=== PATIENT | female | born 1940 | race Caucasian/White ===

== ENCOUNTER 2016-09-07 11:11 | Inpatient (IN) | payer MEDICARE ==
[~2016-09-07] VITALS: Ht 152.4 cm; Wt 76.4 kg
[~2016-09-07 11:11] MED LIST: LIDOCAINE 2% SYR 5 ML IV ONE; PROPOFOL 50ML PER ML IV ONE
[2016-09-07] MEDS ORDERED: OPTIRAY 350 100 ML VIAL HMH IV ONE (11:12)
[2016-09-07] MEDS ORDERED: DILAUDID 1 MG/ML AMP ONE (14:06)
[2016-09-07] MEDS ORDERED: SODIUM CHLORIDE 0.9% 500 ML IV ONE (15:57)
[2016-09-07] MEDS ORDERED: CEFTRIAXONE 1 GM VIAL ONE (19:03)
[2016-09-07] MEDS ORDERED: SODIUM CHLORIDE 0.9% 100 ML IV ONE (19:03)
[2016-09-07] MEDS ORDERED: SALINE FLUSH 10 ML FLUSH PRN (20:15)
[2016-09-07 23:20] VITALS: RESP 18
[2016-09-08] VITALS (8 sets, daily range): BP systolic 124–142; RESP 16–22; TEMP 96.8–100.5; Ht 152.4 cm; Wt 76.4 kg
[2016-09-08] MEDS: SODIUM CHLORIDE 0.9% FLUSH BAG 500 ML IV SCH (05:29)
[2016-09-08] MEDS ORDERED: AZITHROMYCIN 500 MG in SODIUM CHLORIDE 0.9% 250 ML IV ONE (07:50)
[2016-09-08] MEDS ORDERED: GLUCAGON 1 MG VIAL IM PRN (07:55)
[2016-09-08] MEDS ORDERED: DEXTROSE 50% SYRINGE 50 ML IV PRN (07:55)
[2016-09-08] MEDS: ASPIRIN 81 MG CHEW TAB PO SCH (10:57)
[2016-09-08] MEDS: ACETAMINOPHEN 325 MG TAB PO PRN (10:58)
[2016-09-08] MEDS: PANTOPRAZOLE 40 MG TAB PO SCH (10:59)
[2016-09-08] MEDS: PREDNISONE 20 MG TAB PO SCH ×2 (10:59→11:39)
[2016-09-08] MEDS: CEFTRIAXONE 1 GM in SODIUM CHLORIDE 0.9% 50 ML IV SCH (11:00)
[2016-09-08] MEDS: SUCRALFATE 1 GM TAB PO SCH ×3 (11:00→20:28)
[2016-09-08] MEDS: SALINE FLUSH 10 ML FLUSH SCH ×2 (11:04→20:28)
[2016-09-08] MEDS ORDERED: ONDANSETRON 4 MG VIAL IV PUSH PRN (11:45)
[2016-09-08] MEDS: DUONEB INH SCH ×2 (15:31→19:46)
[2016-09-08] MEDS: Furosemide 40 MG/4 ML VIAL IV SCH (18:47)
[2016-09-08] MEDS: ENOXAPARIN 40 MG/0.4 ML SYR SUBQ SCH (18:47)
[2016-09-08] MEDS: Atorvastatin 40 MG TAB PO SCH (20:28)
[2016-09-09] MEDS: DUONEB INH SCH ×4 (00:09→19:50)
[2016-09-09 02:33] VITALS: BP_SYST 142; RESP 20; TEMP 97.9
[2016-09-09] MEDS: SODIUM CHLORIDE 0.9% FLUSH BAG 500 ML IV SCH (06:55)
[2016-09-09] MEDS: PANTOPRAZOLE 40 MG TAB PO SCH (06:56)
[2016-09-09] MEDS: LEVOTHYROXINE 0.025 MG TAB PO SCH (06:56)
[2016-09-09] MEDS: SUCRALFATE 1 GM TAB PO SCH ×4 (06:56→20:42)
[2016-09-09 08:01] VITALS: BP_SYST 144; RESP 18; TEMP 98.3
[2016-09-09] MEDS: CEFTRIAXONE 1 GM in SODIUM CHLORIDE 0.9% 50 ML IV SCH (09:34)
[2016-09-09] MEDS: SALINE FLUSH 10 ML FLUSH SCH ×2 (09:34→20:43)
[2016-09-09] MEDS: Furosemide 40 MG/4 ML VIAL IV SCH (09:35)
[2016-09-09 11:50] VITALS: BP_SYST 142; RESP 20; TEMP 98.3
[2016-09-09] MEDS: ASPIRIN 81 MG CHEW TAB PO SCH (14:53)
[2016-09-09] MEDS: PREDNISONE 20 MG TAB PO SCH (14:53)
[2016-09-09] MEDS: AZITHROMYCIN 250 MG TAB PO SCH (14:53)
[2016-09-09 15:20] VITALS: BP_SYST 132; RESP 20; TEMP 96.8
[2016-09-09] MEDS: ENOXAPARIN 40 MG/0.4 ML SYR SUBQ SCH (17:37)
[2016-09-09 19:52] VITALS: BP_SYST 150; RESP 20; TEMP 97.2
[2016-09-09] MEDS: Atorvastatin 40 MG TAB PO SCH (20:42)
[2016-09-09] MEDS ORDERED: LEVEMIR INSULIN SUBQ SCH (21:00)
[2016-09-09 23:09] VITALS: BP_SYST 144; RESP 18; TEMP 98
[2016-09-10] VITALS (12 sets, daily range): BP systolic 115–164; RESP 12–29; TEMP 97.1–98.7
[2016-09-10] MEDS: SODIUM CHLORIDE 0.9% FLUSH BAG 500 ML IV SCH (06:02)
[2016-09-10] MEDS: SUCRALFATE 1 GM TAB PO SCH ×4 (06:03→21:19)
[2016-09-10] MEDS: LEVOTHYROXINE 0.025 MG TAB PO SCH (06:03)
[2016-09-10] MEDS: PANTOPRAZOLE 40 MG TAB PO SCH (06:03)
[2016-09-10] MEDS: DUONEB INH SCH ×3 (06:49→18:23)
[2016-09-10] MEDS ORDERED: LACT RINGERS 1,000 ML IV SCH (07:40)
[2016-09-10] MEDS ORDERED: LIDOCAINE 1% BUFFERED 1 ML SYR INTRADERM PRN (07:40)
[2016-09-10] MEDS: CEFTRIAXONE 1 GM in SODIUM CHLORIDE 0.9% 50 ML IV SCH (09:24)
[2016-09-10] MEDS: ASPIRIN 81 MG CHEW TAB PO SCH (09:25)
[2016-09-10] MEDS: Furosemide 40 MG/4 ML VIAL IV SCH (09:25)
[2016-09-10] MEDS: SALINE FLUSH 10 ML FLUSH SCH ×2 (09:25→21:19)
[2016-09-10] MEDS: AZITHROMYCIN 250 MG TAB PO SCH (09:25)
[2016-09-10] MEDS: PREDNISONE 20 MG TAB PO SCH (09:25)
[2016-09-10] MEDS: ENOXAPARIN 40 MG/0.4 ML SYR SUBQ SCH (17:06)
[2016-09-10] MEDS: Atorvastatin 40 MG TAB PO SCH (21:19)
[2016-09-10] MEDS: LEVEMIR INSULIN SUBQ SCH (21:21)
[2016-09-11 03:27] VITALS: BP_SYST 162; RESP 20; TEMP 97.9
[2016-09-11] MEDS: SUCRALFATE 1 GM TAB PO SCH ×4 (06:30→20:21)
[2016-09-11] MEDS: PANTOPRAZOLE 40 MG TAB PO SCH (06:30)
[2016-09-11] MEDS: SODIUM CHLORIDE 0.9% FLUSH BAG 500 ML IV SCH (06:30)
[2016-09-11] MEDS: LEVOTHYROXINE 0.025 MG TAB PO SCH (06:30)
[2016-09-11] MEDS: DUONEB INH SCH ×3 (07:34→20:35)
[2016-09-11 08:05] VITALS: BP_SYST 168; RESP 18; TEMP 97.7
[2016-09-11] MEDS ORDERED: amLODIPine 5 MG TAB PO SCH (09:00)
[2016-09-11] MEDS: SALINE FLUSH 10 ML FLUSH SCH ×2 (09:50→20:21)
[2016-09-11] MEDS: ASPIRIN 81 MG CHEW TAB PO SCH (09:52)
[2016-09-11] MEDS: CEFTRIAXONE 1 GM in SODIUM CHLORIDE 0.9% 50 ML IV SCH (09:52)
[2016-09-11] MEDS: PREDNISONE 20 MG TAB PO SCH (09:52)
[2016-09-11] MEDS: AZITHROMYCIN 250 MG TAB PO SCH (09:52)
[2016-09-11 11:47] VITALS: BP_SYST 172; RESP 18; TEMP 97.2
[2016-09-11 16:44] VITALS: BP_SYST 172; RESP 18; TEMP 97.9
[2016-09-11] MEDS: ENOXAPARIN 40 MG/0.4 ML SYR SUBQ SCH (17:25)
[2016-09-11] MEDS: LISINOPRIL 10 MG TAB PO SCH (17:41)
[2016-09-11 19:42] VITALS: BP_SYST 150; RESP 20; TEMP 97.5
[2016-09-11] MEDS: Atorvastatin 40 MG TAB PO SCH (20:21)
[2016-09-11] MEDS: LEVEMIR INSULIN SUBQ SCH (20:23)
[2016-09-11 23:37] VITALS: BP_SYST 148; RESP 20; TEMP 97.8
[2016-09-12 03:29] VITALS: BP_SYST 166; TEMP 97.6
[2016-09-12] MEDS: PANTOPRAZOLE 40 MG TAB PO SCH (05:48)
[2016-09-12] MEDS: SODIUM CHLORIDE 0.9% FLUSH BAG 500 ML IV SCH (05:48)
[2016-09-12] MEDS: SUCRALFATE 1 GM TAB PO SCH ×4 (05:48→21:16)
[2016-09-12] MEDS: LEVOTHYROXINE 0.025 MG TAB PO SCH (05:50)
[2016-09-12] MEDS: DUONEB INH SCH ×4 (07:26→19:56)
[2016-09-12 07:44] VITALS: BP_SYST 162; RESP 18; TEMP 97.4
[2016-09-12] MEDS: LISINOPRIL 10 MG TAB PO SCH (10:18)
[2016-09-12] MEDS: CEFTRIAXONE 1 GM in SODIUM CHLORIDE 0.9% 50 ML IV SCH (10:18)
[2016-09-12] MEDS: ASPIRIN 81 MG CHEW TAB PO SCH (10:18)
[2016-09-12] MEDS: LEVEMIR INSULIN SUBQ SCH ×2 (10:19→21:18)
[2016-09-12] MEDS: SALINE FLUSH 10 ML FLUSH SCH ×2 (10:19→21:17)
[2016-09-12] MEDS: AZITHROMYCIN 250 MG TAB PO SCH (10:19)
[2016-09-12] MEDS: amLODIPine 10 MG TAB PO SCH (10:19)
[2016-09-12 11:35] VITALS: BP_SYST 160; RESP 18; TEMP 97.1
[2016-09-12] MEDS: ACETAMINOPHEN 325 MG TAB PO PRN (16:09)
[2016-09-12 16:10] VITALS: BP_SYST 158; RESP 18; TEMP 97.5
[2016-09-12] MEDS: ENOXAPARIN 40 MG/0.4 ML SYR SUBQ SCH (18:02)
[2016-09-12] MEDS: Atorvastatin 40 MG TAB PO SCH (21:16)
[2016-09-12 21:26] VITALS: BP_SYST 152; RESP 20; TEMP 98.1
[2016-09-13 01:24] VITALS: BP_SYST 160; RESP 18; TEMP 97.5
[2016-09-13 03:18] VITALS: BP_SYST 130; RESP 16; TEMP 98.5
[2016-09-13] MEDS: PANTOPRAZOLE 40 MG TAB PO SCH (06:00)
[2016-09-13] MEDS: SUCRALFATE 1 GM TAB PO SCH ×4 (06:00→21:51)
[2016-09-13] MEDS: LEVOTHYROXINE 0.025 MG TAB PO SCH (06:00)
[2016-09-13] MEDS: SODIUM CHLORIDE 0.9% FLUSH BAG 500 ML IV SCH (06:00)
[2016-09-13 08:00] VITALS: BP_SYST 132; RESP 18; TEMP 97.6
[2016-09-13] MEDS: ASPIRIN 81 MG CHEW TAB PO SCH (08:42)
[2016-09-13] MEDS: CEFTRIAXONE 1 GM in SODIUM CHLORIDE 0.9% 50 ML IV SCH (08:42)
[2016-09-13] MEDS: LEVEMIR INSULIN SUBQ SCH ×2 (08:42→21:53)
[2016-09-13] MEDS: amLODIPine 10 MG TAB PO SCH (08:42)
[2016-09-13] MEDS: SALINE FLUSH 10 ML FLUSH SCH ×2 (08:43→21:52)
[2016-09-13] MEDS: DUONEB INH SCH ×3 (08:48→20:17)
[2016-09-13] MEDS ORDERED: MISSING DOSE XX ONE (09:15)
[2016-09-13] MEDS: LISINOPRIL 20 MG TAB PO SCH (10:01)
[2016-09-13 11:21] VITALS: BP_SYST 136; RESP 18; TEMP 97.5
[2016-09-13] MEDS ORDERED: PHARMACY TO DOSE CEFEPIME IV SCH (12:45)
[2016-09-13] MEDS ORDERED: Furosemide 40 MG/4 ML VIAL IV ONE (12:55)
[2016-09-13] MEDS: CEFEPIME 2000 MG/100 ML D5W 100 ML IV SCH ×2 (13:47→21:51)
[2016-09-13] MEDS: GUAIFENESIN ER 600 MG TABCR PO SCH ×2 (13:47→21:51)
[2016-09-13 16:03] VITALS: BP_SYST 110; RESP 20; TEMP 96.8
[2016-09-13] MEDS: ENOXAPARIN 40 MG/0.4 ML SYR SUBQ SCH (17:19)
[2016-09-13 19:35] VITALS: BP_SYST 140; RESP 20; TEMP 97.9
[2016-09-13] MEDS: Atorvastatin 40 MG TAB PO SCH (21:51)
[2016-09-13] MEDS: ACETAMINOPHEN 325 MG TAB PO PRN (22:05)
[2016-09-14 00:06] VITALS: BP_SYST 120; RESP 20; TEMP 97.4
[2016-09-14 03:10] VITALS: BP_SYST 134; RESP 18; TEMP 97.9
[2016-09-14] MEDS: DUONEB INH SCH ×3 (06:28→19:20)
[2016-09-14] MEDS: SODIUM CHLORIDE 0.9% FLUSH BAG 500 ML IV SCH (06:44)
[2016-09-14] MEDS: PANTOPRAZOLE 40 MG TAB PO SCH (06:44)
[2016-09-14] MEDS: SUCRALFATE 1 GM TAB PO SCH ×4 (06:44→21:04)
[2016-09-14] MEDS: LEVOTHYROXINE 0.025 MG TAB PO SCH (06:44)
[2016-09-14 07:56] VITALS: BP_SYST 136; RESP 18; TEMP 97.9
[2016-09-14] MEDS: SALINE FLUSH 10 ML FLUSH SCH ×2 (08:29→21:03)
[2016-09-14] MEDS: CEFEPIME 2000 MG/100 ML D5W 100 ML IV SCH ×2 (08:29→21:04)
[2016-09-14] MEDS: LEVEMIR INSULIN SUBQ SCH ×3 (08:30→21:05)
[2016-09-14] MEDS: Furosemide 20 MG TAB PO SCH (08:31)
[2016-09-14] MEDS: amLODIPine 10 MG TAB PO SCH (08:31)
[2016-09-14] MEDS: GUAIFENESIN ER 600 MG TABCR PO SCH ×2 (08:31→21:04)
[2016-09-14] MEDS: ASPIRIN 81 MG CHEW TAB PO SCH (08:31)
[2016-09-14] MEDS: LISINOPRIL 20 MG TAB PO SCH (08:31)
[2016-09-14 11:55] VITALS: BP_SYST 134; RESP 18; TEMP 97.4
[2016-09-14 15:58] VITALS: BP_SYST 136; RESP 18; TEMP 97.9
[2016-09-14] MEDS: ENOXAPARIN 40 MG/0.4 ML SYR SUBQ SCH (17:09)
[2016-09-14 20:38] VITALS: BP_SYST 130; RESP 16; TEMP 98.8
[2016-09-14] MEDS: Atorvastatin 40 MG TAB PO SCH (21:04)
[2016-09-15] MEDS: ACETAMINOPHEN 325 MG TAB PO PRN (00:46)
[2016-09-15 01:04] VITALS: BP_SYST 134; RESP 18; TEMP 97.6
[2016-09-15] MEDS: SUCRALFATE 1 GM TAB PO SCH ×4 (06:45→21:12)
[2016-09-15] MEDS: PANTOPRAZOLE 40 MG TAB PO SCH (06:45)
[2016-09-15] MEDS: LEVOTHYROXINE 0.025 MG TAB PO SCH (06:46)
[2016-09-15] MEDS: SODIUM CHLORIDE 0.9% FLUSH BAG 500 ML IV SCH (06:46)
[2016-09-15] MEDS: DUONEB INH SCH ×3 (07:10→18:30)
[2016-09-15] MEDS: CEFEPIME 2000 MG/100 ML D5W 100 ML IV SCH ×2 (08:14→21:13)
[2016-09-15] MEDS: LEVEMIR INSULIN SUBQ SCH ×2 (08:14→21:14)
[2016-09-15] MEDS: SALINE FLUSH 10 ML FLUSH SCH ×2 (08:14→21:14)
[2016-09-15 08:18] VITALS: BP_SYST 134; RESP 18; TEMP 97.6
[2016-09-15] MEDS: ASPIRIN 81 MG CHEW TAB PO SCH (09:01)
[2016-09-15] MEDS: LISINOPRIL 20 MG TAB PO SCH (09:01)
[2016-09-15] MEDS: Furosemide 20 MG TAB PO SCH (09:01)
[2016-09-15] MEDS: GUAIFENESIN ER 600 MG TABCR PO SCH ×2 (09:01→21:12)
[2016-09-15] MEDS: amLODIPine 10 MG TAB PO SCH (09:02)
[2016-09-15] MEDS ORDERED: MISSING DOSE XX ONE (11:10)
[2016-09-15 11:43] VITALS: BP_SYST 130; RESP 18; TEMP 98.1
[2016-09-15] MEDS ORDERED: Furosemide 40 MG/4 ML VIAL IV ONE (12:10)
[2016-09-15 14:53] VITALS: BP_SYST 140; RESP 18; TEMP 98.2
[2016-09-15] MEDS: ENOXAPARIN 40 MG/0.4 ML SYR SUBQ SCH (17:35)
[2016-09-15 19:26] VITALS: BP_SYST 120; RESP 18; TEMP 97.8
[2016-09-15] MEDS: Atorvastatin 40 MG TAB PO SCH (21:12)
[2016-09-15 23:20] VITALS: BP_SYST 130; RESP 20; TEMP 98.4
[2016-09-16 03:30] VITALS: BP_SYST 144; RESP 18; TEMP 97.7
[2016-09-16] MEDS: PANTOPRAZOLE 40 MG TAB PO SCH (06:54)
[2016-09-16] MEDS: LEVOTHYROXINE 0.025 MG TAB PO SCH (06:54)
[2016-09-16] MEDS: SODIUM CHLORIDE 0.9% FLUSH BAG 500 ML IV SCH (06:54)
[2016-09-16] MEDS: SUCRALFATE 1 GM TAB PO SCH ×4 (06:54→22:21)
[2016-09-16] MEDS: DUONEB INH SCH ×3 (07:09→19:24)
[2016-09-16] MEDS: CEFEPIME 2000 MG/100 ML D5W 100 ML IV SCH (07:42)
[2016-09-16] MEDS: SALINE FLUSH 10 ML FLUSH SCH ×2 (07:42→22:23)
[2016-09-16 08:13] VITALS: BP_SYST 118; RESP 18; TEMP 97.8
[2016-09-16] MEDS: ASPIRIN 81 MG CHEW TAB PO SCH (08:36)
[2016-09-16] MEDS: GUAIFENESIN ER 600 MG TABCR PO SCH ×2 (08:36→22:21)
[2016-09-16] MEDS: LISINOPRIL 20 MG TAB PO SCH (08:36)
[2016-09-16] MEDS: amLODIPine 10 MG TAB PO SCH (08:37)
[2016-09-16] MEDS: Furosemide 20 MG TAB PO SCH (08:37)
[2016-09-16] MEDS: LEVEMIR INSULIN SUBQ SCH ×2 (08:38→22:23)
[2016-09-16] MEDS ORDERED: GUAIFENESIN 10 ML UDC PO PRN (10:00)
[2016-09-16] MEDS ORDERED: MISSING DOSE XX ONE (11:05)
[2016-09-16 11:53] VITALS: BP_SYST 104; RESP 18; TEMP 98.3
[2016-09-16] MEDS ORDERED: PHARMACY TO DOSE ZOSYN IV SCH (12:15)
[2016-09-16] MEDS: PIPERACIL/TAZO 2.25GM/50ML 50 ML IV SCH ×2 (13:22→17:36)
[2016-09-16 17:10] VITALS: BP_SYST 122; RESP 18; TEMP 97.6
[2016-09-16] MEDS: ENOXAPARIN 40 MG/0.4 ML SYR SUBQ SCH (19:07)
[2016-09-16 19:40] VITALS: BP_SYST 130; RESP 20; TEMP 98.2
[2016-09-16] MEDS: Atorvastatin 40 MG TAB PO SCH (22:21)
[2016-09-16 23:31] VITALS: BP_SYST 120; RESP 18; TEMP 97.7
[2016-09-17] MEDS: PIPERACIL/TAZO 2.25GM/50ML 50 ML IV SCH ×4 (00:34→18:37)
[2016-09-17 05:10] VITALS: BP_SYST 142; RESP 22; TEMP 98
[2016-09-17] MEDS: SODIUM CHLORIDE 0.9% FLUSH BAG 500 ML IV SCH (05:57)
[2016-09-17] MEDS: LEVOTHYROXINE 0.025 MG TAB PO SCH (05:59)
[2016-09-17] MEDS: SUCRALFATE 1 GM TAB PO SCH ×4 (05:59→21:04)
[2016-09-17] MEDS ORDERED: MISSING DOSE XX ONE (06:35)
[2016-09-17] MEDS ORDERED: LANSOPRAZOLE 30 MG/10 ML PO SCH (07:00)
[2016-09-17] MEDS: DUONEB INH SCH ×3 (07:09→19:55)
[2016-09-17 08:20] VITALS: BP_SYST 112; RESP 18; TEMP 98.1
[2016-09-17] MEDS: amLODIPine 10 MG TAB PO SCH (08:52)
[2016-09-17] MEDS: ASPIRIN 81 MG CHEW TAB PO SCH (08:52)
[2016-09-17] MEDS: GUAIFENESIN ER 600 MG TABCR PO SCH ×3 (08:52→21:04)
[2016-09-17] MEDS: Furosemide 20 MG TAB PO SCH (08:52)
[2016-09-17] MEDS: LISINOPRIL 20 MG TAB PO SCH (08:52)
[2016-09-17] MEDS: LEVEMIR INSULIN SUBQ SCH ×2 (08:53→21:04)
[2016-09-17] MEDS: SALINE FLUSH 10 ML FLUSH SCH ×2 (08:54→21:03)
[2016-09-17 11:10] VITALS: BP_SYST 108; RESP 18; TEMP 98.4
[2016-09-17 17:07] VITALS: BP_SYST 122; RESP 18; TEMP 97.8
[2016-09-17] MEDS: ENOXAPARIN 40 MG/0.4 ML SYR SUBQ SCH (18:38)
[2016-09-17 19:45] VITALS: BP_SYST 100; RESP 18; TEMP 98.2
[2016-09-17] MEDS: Atorvastatin 40 MG TAB PO SCH (21:04)
[2016-09-17 23:36] VITALS: BP_SYST 96; RESP 20; TEMP 98.3
[2016-09-18] MEDS: PIPERACIL/TAZO 2.25GM/50ML 50 ML IV SCH ×2 (00:15→06:07)
[2016-09-18 03:53] VITALS: BP_SYST 102; RESP 20; TEMP 98
[2016-09-18] MEDS: SODIUM CHLORIDE 0.9% FLUSH BAG 500 ML IV SCH (06:07)
[2016-09-18] MEDS: LEVOTHYROXINE 0.025 MG TAB PO SCH (06:53)
[2016-09-18] MEDS: SUCRALFATE 1 GM TAB PO SCH ×4 (06:53→21:42)
[2016-09-18] MEDS: DUONEB INH SCH ×3 (07:52→18:56)
[2016-09-18 08:13] VITALS: BP_SYST 122; RESP 20; TEMP 97.8
[2016-09-18] MEDS: Furosemide 20 MG TAB PO SCH (08:49)
[2016-09-18] MEDS: amLODIPine 10 MG TAB PO SCH (08:49)
[2016-09-18] MEDS: GUAIFENESIN ER 600 MG TABCR PO SCH ×2 (08:49→21:42)
[2016-09-18] MEDS: ASPIRIN 81 MG CHEW TAB PO SCH (08:49)
[2016-09-18] MEDS: LEVEMIR INSULIN SUBQ SCH ×2 (08:49→21:59)
[2016-09-18] MEDS: LISINOPRIL 20 MG TAB PO SCH (08:49)
[2016-09-18] MEDS: SALINE FLUSH 10 ML FLUSH SCH ×2 (08:50→21:42)
[2016-09-18] MEDS ORDERED: MISSING DOSE XX ONE (08:50)
[2016-09-18] MEDS: LANSOPRAZOLE 30 MG SOLUTAB PO SCH (10:20)
[2016-09-18 11:00] VITALS: BP_SYST 130; RESP 20; TEMP 98
[2016-09-18] MEDS: PIPERACIL/TAZO 3.375GM/50ML 50 ML IV SCH ×3 (13:54→23:18)
[2016-09-18 15:40] VITALS: BP_SYST 136; RESP 20; TEMP 97.8
[2016-09-18] MEDS: ENOXAPARIN 40 MG/0.4 ML SYR SUBQ SCH (17:29)
[2016-09-18 20:13] VITALS: BP_SYST 100; RESP 18; TEMP 97.8
[2016-09-18] MEDS: Atorvastatin 40 MG TAB PO SCH (21:42)
[2016-09-18] MEDS: BENZONATATE 100 MG CAP PO PRN (21:42)
[2016-09-18 23:25] VITALS: BP_SYST 100; RESP 20; TEMP 97.4
[2016-09-19 03:14] VITALS: BP_SYST 104; RESP 16; TEMP 97.8
[2016-09-19] MEDS: PIPERACIL/TAZO 3.375GM/50ML 50 ML IV SCH ×3 (05:59→17:07)
[2016-09-19] MEDS: SUCRALFATE 1 GM TAB PO SCH ×4 (06:00→22:17)
[2016-09-19] MEDS: LANSOPRAZOLE 30 MG SOLUTAB PO SCH (06:00)
[2016-09-19] MEDS: LEVOTHYROXINE 0.025 MG TAB PO SCH (06:00)
[2016-09-19] MEDS: SODIUM CHLORIDE 0.9% FLUSH BAG 500 ML IV SCH (06:02)
[2016-09-19] MEDS: DUONEB INH SCH ×3 (07:08→19:24)
[2016-09-19 08:20] VITALS: BP_SYST 118; RESP 20; TEMP 97.7
[2016-09-19] MEDS: GUAIFENESIN ER 600 MG TABCR PO SCH ×2 (09:17→22:17)
[2016-09-19] MEDS: Furosemide 20 MG TAB PO SCH (09:18)
[2016-09-19] MEDS: LISINOPRIL 20 MG TAB PO SCH (09:18)
[2016-09-19] MEDS: amLODIPine 10 MG TAB PO SCH (09:18)
[2016-09-19] MEDS: ASPIRIN 81 MG CHEW TAB PO SCH (09:18)
[2016-09-19] MEDS: LEVEMIR INSULIN SUBQ SCH ×2 (09:19→22:18)
[2016-09-19] MEDS: BENZONATATE 100 MG CAP PO PRN (09:20)
[2016-09-19] MEDS: SALINE FLUSH 10 ML FLUSH SCH ×2 (11:43→22:19)
[2016-09-19 12:01] VITALS: BP_SYST 140; RESP 18; TEMP 97.3
[2016-09-19 16:20] VITALS: BP_SYST 134; RESP 20; TEMP 98
[2016-09-19] MEDS: ENOXAPARIN 40 MG/0.4 ML SYR SUBQ SCH (17:07)
[2016-09-19 19:40] VITALS: BP_SYST 126; RESP 20; TEMP 97
[2016-09-19] MEDS ORDERED: MISSING DOSE XX ONE (22:15)
[2016-09-19] MEDS: Atorvastatin 40 MG TAB PO SCH (22:17)
[2016-09-19 23:04] VITALS: BP_SYST 122; RESP 20; TEMP 97.9
[2016-09-20] MEDS: PIPERACIL/TAZO 3.375GM/50ML 50 ML IV SCH ×4 (01:08→18:02)
[2016-09-20] MEDS: BENZONATATE 100 MG CAP PO PRN ×2 (01:22→21:16)
[2016-09-20 03:10] VITALS: BP_SYST 120; RESP 20; TEMP 97.6
[2016-09-20] MEDS: DUONEB INH SCH ×3 (06:45→18:30)
[2016-09-20] MEDS: SODIUM CHLORIDE 0.9% FLUSH BAG 500 ML IV SCH (07:13)
[2016-09-20] MEDS: LANSOPRAZOLE 30 MG SOLUTAB PO SCH (07:14)
[2016-09-20] MEDS: SUCRALFATE 1 GM TAB PO SCH ×4 (07:14→21:16)
[2016-09-20] MEDS: LEVOTHYROXINE 0.025 MG TAB PO SCH (07:14)
[2016-09-20 07:55] VITALS: BP_SYST 188; RESP 18; TEMP 98.2
[2016-09-20] MEDS: LISINOPRIL 20 MG TAB PO SCH (08:47)
[2016-09-20] MEDS: GUAIFENESIN ER 600 MG TABCR PO SCH ×2 (08:47→21:16)
[2016-09-20] MEDS: ASPIRIN 81 MG CHEW TAB PO SCH (08:47)
[2016-09-20] MEDS: amLODIPine 10 MG TAB PO SCH (08:47)
[2016-09-20] MEDS: Furosemide 20 MG TAB PO SCH (08:47)
[2016-09-20] MEDS: LEVEMIR INSULIN SUBQ SCH ×2 (08:48→21:33)
[2016-09-20 11:10] VITALS: BP_SYST 112; RESP 18; TEMP 98.1
[2016-09-20] MEDS: SALINE FLUSH 10 ML FLUSH SCH ×2 (11:34→21:33)
[2016-09-20 16:15] VITALS: BP_SYST 122; RESP 18; TEMP 97.6
[2016-09-20] MEDS: ENOXAPARIN 40 MG/0.4 ML SYR SUBQ SCH (18:02)
[2016-09-20 20:08] VITALS: BP_SYST 120; RESP 20; TEMP 98
[2016-09-20] MEDS ORDERED: MISSING DOSE XX ONE (20:55)
[2016-09-20] MEDS: Atorvastatin 40 MG TAB PO SCH (21:16)
[2016-09-20] MEDS: ACETAMINOPHEN 325 MG TAB PO PRN (21:17)
[2016-09-20 23:29] VITALS: BP_SYST 120; RESP 20; TEMP 98
[2016-09-21] VITALS (7 sets, daily range): BP systolic 108–138; RESP 18–20; TEMP 97.5–97.8
[2016-09-21] MEDS: PIPERACIL/TAZO 3.375GM/50ML 50 ML IV SCH ×3 (01:01→11:33)
[2016-09-21] MEDS: LEVOTHYROXINE 0.025 MG TAB PO SCH (06:42)
[2016-09-21] MEDS: SUCRALFATE 1 GM TAB PO SCH ×2 (06:42→11:33)
[2016-09-21] MEDS: LANSOPRAZOLE 30 MG SOLUTAB PO SCH (06:42)
[2016-09-21] MEDS: SODIUM CHLORIDE 0.9% FLUSH BAG 500 ML IV SCH (06:42)
[2016-09-21] MEDS: DUONEB INH SCH ×2 (06:56→11:08)
[2016-09-21] MEDS: SALINE FLUSH 10 ML FLUSH SCH (08:04)
[2016-09-21] MEDS: GUAIFENESIN ER 600 MG TABCR PO SCH (09:18)
[2016-09-21] MEDS: ASPIRIN 81 MG CHEW TAB PO SCH (09:18)
[2016-09-21] MEDS: amLODIPine 10 MG TAB PO SCH (09:18)
[2016-09-21] MEDS: LISINOPRIL 20 MG TAB PO SCH (09:19)
[2016-09-21] MEDS: Furosemide 20 MG TAB PO SCH (09:19)
[2016-09-21] MEDS: LEVEMIR INSULIN SUBQ SCH (09:20)
[2016-09-22] MEDS ORDERED: SODIUM CHLORIDE 0.9% FLUSH BAG 500 ML IV SCH (06:00)
== END 2016-09-21 16:10 | DRG 177 ==
LOC: ENRESERV → ENRESERVTM → ENRESERVDT → ER 11:11 → EMR 19:11 → 3NT 22:02 → OBSVTOIN 09-09 10:48 → ENPENDDIS 09-09 10:48
PROVIDERS: ADMIT Internal Medicine; ATTEND Internal Medicine
PROC: 3E0G8GC Introduction of Other Therapeutic Substance into Upper GI, Via Natural or Artificial Opening Endoscopic (ICD-10-PCS; 2016-09-10)
PROC: 0DJ08ZZ Inspection of Upper Intestinal Tract, Via Natural or Artificial Opening Endoscopic (ICD-10-PCS; 2016-09-10)
PROC: 02HV33Z Insertion of Infusion Device into Superior Vena Cava, Percutaneous Approach (ICD-10-PCS; principal; 2016-09-20)
DX: J69.0 Pneumonitis due to inhalation of food and vomit (principal); J96.01 Acute respiratory failure with hypoxia; I50.31 Acute diastolic (congestive) heart failure; G92 Toxic encephalopathy; K22.0 Achalasia of cardia; J15.1 Pneumonia due to Pseudomonas; I11.0 Hypertensive heart disease with heart failure; I25.10 Atherosclerotic heart disease of native coronary artery without angina pectoris; Z95.5 Presence of coronary angioplasty implant and graft; E78.5 Hyperlipidemia, unspecified; M19.90 Unspecified osteoarthritis, unspecified site; E03.9 Hypothyroidism, unspecified; E11.65 Type 2 diabetes mellitus with hyperglycemia; Z79.84 Long term (current) use of oral hypoglycemic drugs; T36.1X5A Adverse effect of cephalosporins and other beta-lactam antibiotics, initial encounter; I35.0 Nonrheumatic aortic (valve) stenosis; Z79.82 Long term (current) use of aspirin; Z79.02 Long term (current) use of antithrombotics/antiplatelets; I25.2 Old myocardial infarction; Z87.891 Personal history of nicotine dependence
CPT/HCPCS: 36569; 36600; 71010; 71020; 71260; 76937; 80048; 80053; 81001; 81003; 82553; 82803; 82947; 83605; 83735; 83880; 84100; 84484; 85025; 85379; 85610; 85730; 86701; 87040; 87071; 87077; 87088; 87186; 87299; 87804; 93005; 93306; 94640; 94664; 94799; 96361; 96365; 96375; 99219; 99222; 99232; 99233